=== PATIENT | female | born 1955 | race Caucasian/White ===

== ENCOUNTER → 2016-10-13 | Day surgery (SDC) | payer MEDICARE, OTHER ==
[~2016-10-13] VITALS: Ht 170.2 cm; Wt 69.8 kg
[~2016-10-13] MED LIST: Atropine 0.4 mg/mL Inj IVPUSH PRN; BUPR300T52 PO; Dexamethasone 4 mg/mL Inj ONE; EPHEDrine Sulfate 50 mg/mL Inj IVPUSH PRN; EPHEDrine/NS 5 mg/mL 5 mL Syringe ONE; Glycopyrrolate 0.2 MG/ML 1mL Inj ONE; HYDR-3825 PO; HYDR2TAB28 PO; HYDROmorphone 1 mg/mL Inj IVPUSH PRN; IBUP800T28 PO; LANS30CA PO; Labetalol 5 mg/mL 20 mL Inj IV PRN; Lactated Ringer's 1,000 ML IV ONE; Lactated Ringer's 1,000 ML IV SCH; Lactated Ringer's 500 ML IV PRN; MetoCLOpramide 5 mg/mL 2 mL Inj IVPUSH PRN; Neostigmine 1 mg/mL 10 mL Inj ONE; OLME1TAB PO; OXYC5CAP4 PO; Ondansetron 2 mg/mL 2 mL Inj IVPUSH PRN; Ondansetron 2 mg/mL 2 mL Inj ONE; PARO20TA5 PO; PROM25TA14 PO; Phenylephrine 10,000 mCg/mL Inj IVPUSH PRN; Propofol 10,000 mCg/mL 20 mL Inj ONE; Rocuronium 10 mg/mL 5 mL Inj ONE; fentaNYL-PF 50 mCg/mL 2 mL Inj IVPUSH PRN; fentaNYL-PF 50 mCg/mL 2 mL Inj ONE
[2016-10-13 08:53] VITALS: BP 91/53; PULSE 78; RESP 19; O2SAT 88
--- NOTE | 2016-10-13 08:55 | PCM.HPANE ---
Patient Data Surgeon Admitting Provider: Attending Provider:Lenora Rivas MD Primary Care Physician:Nicole Gomez Other Provider:Adriana Warner Anesthesia Reason for Visit Abnormal Ct Scan Ht/WT & BMI Height (Feet): 5 Height (Inches): 7 Weight (Kilograms): 69.85 Body Mass Index 24.00 Allergies Coded Allergies: No Known Allergies (Unverified , 05/10/15) Past Anesthesia History Anesthesia History: Positive for:: Anesthesia Reactions (NAUSEA, FEELS FLU LIKE SYMPTOMS), Denies:: Malignant Hyperthermia Diabetes History Hx Diabetes?: No MRSA MRSA: No Medications Hypertension Medication: Yes Home Meds Incl Beta Eleni: No Reported Medications Promethazine 25 Mg Aubxtt69 Mg PO q4-6h PRN For Nausea/Vomiting Ref 0 05/10/15 Paroxetine 20 Mg [id number] Mg PO HS 30 Days Ref 0 05/10/15 Lansoprazole 30 Mg Capsule.dr30 Mg PO DAILY #30 CAPSULE Ref 0 05/10/15 Bupropion ER 300 Mg Tab.er.[id number] Mg PO DAILY Ref 0 05/10/15 Olmesartan/HCTZ 20-12.5 mg (Benicar HCT 20-12.5 mg)1 Each Tablet1 Tablet PO DAILY Ref 0 05/10/15 oxyCODONE 5 Mg Capsule5 Mg PO Q4H PRN For Pain Ref 0 05/10/15 Ibuprofen 800 Mg Claiat670 Mg PO TID PRN For Pain Ref 0 05/10/15 Discontinued Reported Medications Hydromorphone 2 Mg Tablet2 Mg PO Q4H PRN Pain Ref 0 05/13/15 Hydrocodone-Acetaminophen 7.5-325 mg 1 Each Tablet1 Tablet PO Q6H PRN For Pain Ref 0 05/10/15 History History of ENT Problems?: No HEENT History: Denies:: Abnormal Airway Cataracts Difficult Intubation Dysphagia Glaucoma Hearing Problem Sinus Problem TMJ Denture Type: None Teeth Condition: Missing Teeth Other HEENT Pertinent History: MULTIPLE Hx of Heart Problems?: Yes Cardiovascular History: Positive for:: Hypertension Denies:: AICD Pacemaker Valvular Heart Disease Other Cardiac History: > 4 METS Hx of Respiratory Problem?: No Respiratory History: Denies:: Use of C-PAP Machine Other Resp Pertinent History: STATES POSSIBLE BRONCHITIS Hx Neurologic Problems?: Yes Neurological History: Denies:: CVA Hx of GI Problems?: Yes Hx of Problems?: Yes Genitourinary History: Positive for:: Kidney Stones (HX PRIOR STONES BILAT STONES LT URETERAL STONE=CURRENT PROBLEM) Urinary Tract Infection (HX OF) Female Hx: Denies:: Currently (post menopausal) Skin History: Denies:: History Skin Disorders? Pressure Ulcers Hx Musculoskeletal Problems?: No Hx of Psycho/Social Problems?: Yes Psycho Social History: Positive for:: Anxiety Hx Surgeries?: Yes (SPLENECTOMY,D&C,LYMPH NODE BX) Hx Any Other Health Problems?: Yes Other History: Positive for:: Cancer (FOLLICULAR LYMPHOMA S/P LYMPH NODE BX) Hospitalization Denies:: Endocrine Disease (C/OF NIGHT SWEATS) Thyroid Disease History Blood Transfusions: Denies:: Blood Transfusions (UNSURE) Hx Diabetes: No Hx Alcohol Use: Yes (OCCAS)Hx Substance Use: No Smoking Status: Current Every Day Smoker Have You Smoked inLast 12 mo: Yes Stop/Bang Treated for Sleep Apnea?: No Do You Have a CPAP Machine?: No S-Snoring: Do You Snore Loudly: Yes T-Tired: feel tired, fatigued: Yes O-Obsered: Observed not breath: No P-Blood Pressure: treated: Yes B- Body Mass Index > 35 kg/m2: No A- Age over 50: Yes N- Neck Large Circumference: No G- Gender Male: No CLEVE Total Score: 4 CLEVE Risk Assessment: High Risk, =/>3 Yes Risk Assessment Category Category 1A: Patient has history of documented sleep apnea, and HAS NOT received any narcotic, sedative or anesthesia administration during this stay. Category 1B: Patient has history of documented sleep apnea, and HAS received any narcotic , sedative or anesthesia administration during this stay Category 2: Patient has SUSPECTED Obstructive Sleep Apnea, and HAS received any narcotic , sedative or anesthesia administration during this stay. Category 3: Patient has SUSPECTED Obstructive Sleep Apnea and HAS NOT received narcotic, sedative or anesthesia administration during this stay. Category 4: Outpatient in Procedural Areas with known sleep apnea or who screen positive for High Risk via the STOP/BANG questionnaire. Exam Exam General Appearance: Alert, Oriented X3, Cooperative, No Acute Distress HEENT/AIRWAY: MP 2 Lungs: Clear to Auscultation, Normal Air Movement Heart: Exam Unremarkable, Regular Rate/Rhythm, No Murmurs/Rubs/Gallops Plan Impression Patient chart reviewed, patient interviewed and anesthestic plan with risks, benefits, and alternatives discussed, and informed consent obtained. NPO per Anesth. Guidelines: Yes ASA Physical Status: ASA2 Mod Systemic Disease Anesthetic Plan: GA Bene/Risks/Altern/Consents: Yes HP Complete Prior to Induction: Yes Lee Noreiga MD Oct 13, 2016 08:55
[2016-10-13 09:20] VITALS: PULSE 73; O2SAT 92
[2016-10-13 11:37] VITALS: BP 112/71; PULSE 83; RESP 16; O2SAT 94
--- NOTE | 2016-10-13 11:48 | PCM.ANEP1 ---
Post Anesthesia PACU Phase 1 Assessment Vital Signs Vital Signs Date Time Temp Pulse Resp B/P Pulse Ox O2 Delivery O2 Flow Rate FiO2 10/13/16 11:37 36.3 83 16 112/71 94 Room Air 3 10/13/16 09:20 73 92 Room Air 10/13/16 08:53 78 19 91/53 88 Room Air Anesthetic Administered: GA Level of Alertness: Awake, talking STALEY's with Equal Strength: Yes Pain: No Nausea or Vomiting: No CV Function & Hydration Stable: Yes Airway Device: Endotrachial Tube Oxygen Delivery: Nasal Cannula Lungs: Clear to Auscultation, Normal Air Movement PACU Phase 2 Assessment Complications: No Follow up Care: No Patient Instructions Provided: N/A Lee Norieag MD Oct 13, 2016 11:48
[2016-10-13 12:24] VITALS: BP 117/82; PULSE 95; RESP 14; O2SAT 93
[2016-10-13 12:33] VITALS: BP 106/66; PULSE 95; RESP 14; O2SAT 92
--- NOTE | 2016-10-19 00:26 | ENDO ---
[address] [address] ENDOSCOPY PROCEDURE PATIENT: ANUP TUCKER : 1955 MR#: [id number] ADMIT: 10/13/2016 JOB ID: [id number] DATE OF PROCEDURE: 10/13/2016 PROCEDURE: Endoscopic ultrasound. INDICATION: Retroperitoneal mass seen on MRI in a patient that has a history of lymphoma. ANESTHESIA: Please see anesthesia report for details regarding ASA classification, Mallampati score, and medications. INSTRUMENT USED: [id number]-[id number], as well as a [id number] linear echoendoscope. MEDICATIONS: The patient was under placed under general anesthesia for the procedure, please see anesthesia report for details. PROCEDURE DETAILS: After informed consent was obtained, the patient was brought into the GI suite where she was placed under general anesthesia and then placed in left lateral decubitus position. The standard EGD scope was inserted through the bite block and advanced under direct visualization to the second portion of duodenum without difficulty. FINDINGS: 1. Normal appearing duodenal bulb, first and second portion. 2. Normal appearing pylorus, antrum and gastric body. 3. Retroflexed views in the gastric body revealed a normal appearing cardia and fundus. 4. Normal appearing GE junction. 5. Normal appearing esophagus. The linear echoendoscope was then introduced through the bite block and advanced without difficulty to the second portion of the duodenum. Linear echoendoscopic imaging demonstrated the followin. There was what appeared to be abutting the pancreas, a 5 cm x 5 cm mixed echogenic lesion. There were multiple lymph nodes in the peripancreatic area that were hypoechoic and appeared to be well circumscribed, and largest lymph node measured approximately 1 cm. The window to FNA the mass was quite narrow as there was blood vessels in the path of the needle. However, we were able to make two passes with a 22-gauge core Cody-SousaCamp needle. Sample was given to pathologist on site and was deemed to be adequate specimen. 2. The common bile duct did appear to be mildly dilated in the distal portion and measured approximately 1.2 to 1.3 cm. No obvious filling defects appreciated. I did not appreciate that this retroperitoneal lesion was abutting the common bile duct. 3. Splenic artery and vein were seen and flow was appreciated. 4. The mass appeared to be encompassing the superior mesenteric artery. 5. The lesion appeared to be involving the celiac axis. 6. The pancreatic duct was identified and appeared to be normal in course and caliber in the head of the pancreas, as well as in the tail. I was not able to appreciate the duct in the body of the pancreas. IMPRESSION: 1. Large retroperitoneal mass abutting the body of the pancreas involving the celiac axis and encasing the superior mesenteric artery. 2. Multiple subcentimeter lymph nodes appreciated in the peripancreatic area. RECOMMENDATIONS: 1. Await FNA results. 2. Follow up with Oncology. COMPLICATIONS: None. ESTIMATED BLOOD LOSS: 0 mL.
== END | disposition home or self-care (01) ==
LOC: END 08:04
PROVIDERS: ATTEND Internal Medicine Gastroenterology
DX: C85.13 Unspecified B-cell lymphoma, intra-abdominal lymph nodes (principal); F41.9 Anxiety disorder, unspecified; F17.210 Nicotine dependence, cigarettes, uncomplicated; Z87.442 Personal history of urinary calculi; Z79.899 Other long term (current) drug therapy